=== PATIENT | female | born 1950 | race Caucasian/White ===

== ENCOUNTER 2017-09-14 15:12 | Observation (INO) | payer MEDICARE, BC ==
[2017-09-14] MEDS: CEFTRIAXONE 1 GM/50 ML (PMX) 50 ML IVPB (16:27)
[2017-09-14] MEDS: AZITHROMYCIN 250 MG TAB PO (16:27)
[2017-09-14] MEDS: SODIUM CHLORIDE 0.9% 1L BAG IV* (16:27)
[2017-09-14 16:42] LABS: ADD MAN DIFF? NO
[2017-09-14 16:45] LABS: BASOPHILS % 0.4 % (0.0-2.0); EOSINOPHILS # 0.1 10^3/ul (0.0-0.5); EOSINOPHILS % 0.8 % (0.0-7.0); HEMATOCRIT 39.2 % (37.0-47.0); HEMOGLOBIN 13.1 g/dl (12.0-16.0); LYMPHOCYTES # 1.4 10^3/ul (0.8-2.9); LYMPHOCYTES % 12.9 % (15.0-51.0); MEAN CORPUSCULAR HEMOGLOBIN 31.6 pg (29.0-33.0); MEAN CORPUSCULAR HGB CONC 33.4 g/dl (32.0-37.0); MEAN CORPUSCULAR VOLUME 94.7 fl (82.0-101.0); MEAN PLATELET VOLUME 9.7 fl (7.4-10.4); MONOCYTE # 0.9 10^3/ul (0.3-0.9); MONOCYTES % 8.3 % (0.0-11.0); NEUTROPHIL # 8.1 10^3/ul (1.6-7.5); NEUTROPHILS % 75.7 % (39.0-77.0); PLATELET COUNT 400 10^3/UL (140-415); RED BLOOD COUNT 4.14 10^6/ul (4.20-5.40); RED CELL DISTRIBUTION WIDTH 13.7 % (11.5-14.5)
[2017-09-14 16:45] LABS: WHITE BLOOD COUNT 10.6 10^3/ul (4.8-10.8)
[2017-09-14 17:06] LABS: LACTIC ACID 1.7 mmol/L (0.5-2.0)
[2017-09-14 17:07] LABS: ANION GAP 15 (8-16); BLOOD UREA NITROGEN 19 mg/dl (7-20); CARBON DIOXIDE 30 mmol/L (21-31); CHLORIDE 99 mmol/L (97-110); CREATININE 0.66 mg/dl (0.44-1.00); GLUCOSE 112 mg/dl (70-220); POTASSIUM 3.6 mmol/L (3.5-5.1); SODIUM 140 mmol/L (135-144)
[2017-09-14 17:49] LABS: CALCIUM 9.8 mg/dl (8.4-10.2)
[2017-09-14] MEDS: predniSONE 20 MG TAB PO (17:58)
[2017-09-14] MEDS: ALBUTEROL 0.083% (NEB) 2.5 MG/3 ML AMP NEB (18:16)
[2017-09-14] MEDS ORDERED: IBUPROFEN 800 MG TAB PO (18:30)
[2017-09-14] MEDS ORDERED: ONDANSETRON 4 MG TAB PO (18:30)
[2017-09-14] MEDS ORDERED: NACL 0.9% 3 ML SYG IV (18:30)
[2017-09-14] MEDS ORDERED: AZITHROMYCIN 500MG/NS (PMX) 250 ML IV (18:30)
[2017-09-14] MEDS ORDERED: MAGNESIUM HYDROXIDE 30ML CUP PO (18:30)
[2017-09-14] MEDS ORDERED: ALPRAZOLAM 0.25 MG TAB PO (18:30)
[2017-09-14] MEDS ORDERED: ACETAMINOPHEN 650 MG SUPP PR (18:30)
[2017-09-14 20:38] LABS: LACTIC ACID 1.6 mmol/L (0.5-2.0)
[2017-09-14] MEDS: CALCIUM/VITAMIN D (250/125) TAB PO (21:00)
[2017-09-14] MEDS: ALBUTEROL/IPRATROPIUM (NEB) 3 ML AMP NEB (21:02)
[2017-09-14] MEDS: ACETYLCYSTEINE 20% 4 ML VIAL NEB (21:02)
[2017-09-14] MEDS: FISH OIL 1,000 MG CAP PO (21:29)
[2017-09-14] MEDS: TIOTROPIUM 18 MCG CAPSULE INHA DEV INH (21:29)
[2017-09-14] MEDS: SALMETEROL/FLUTICASONE 250/50 INHA INH (21:29)
[2017-09-14] MEDS: FAMOTIDINE 20 MG TAB PO (21:30)
[2017-09-14] MEDS: ATORVASTATIN 10 MG TAB PO (21:30)
[2017-09-14] MEDS: MONTELUKAST 10 MG TAB PO (21:30)
[2017-09-14] MEDS: PRIMIDONE 250 MG TAB PO (21:30)
[2017-09-14] MEDS: HEPARIN 5,000 UNIT/0.5 ML VIAL SC (21:31)
[2017-09-14] MEDS: PREGABALIN 75 MG CAP PO (21:35)
[2017-09-14 23:11] LABS: LACTIC ACID 1.3 mmol/L (0.5-2.0)
[2017-09-14] MEDS: ZOLPIDEM 5 MG TAB PO (23:22)
[2017-09-14] MEDS: METHYLPREDNISOLONE 125 MG INJ IV (23:22)
[2017-09-14] MEDS: CARISOPRODOL 350 MG TAB PO (23:22)
[2017-09-15] MEDS: ALBUTEROL/IPRATROPIUM (NEB) 3 ML AMP NEB ×6 (01:00→21:00)
[2017-09-15] MEDS: ACETYLCYSTEINE 20% 4 ML VIAL NEB ×4 (01:02→21:33)
[2017-09-15 06:31] LABS: ADD MAN DIFF? NO
[2017-09-15 06:36] LABS: WHITE BLOOD COUNT 8.6 10^3/ul (4.8-10.8)
[2017-09-15 06:36] LABS: ABNORMAL IP MESSAGE 1; BASOPHILS % 0.3 % (0.0-2.0); HEMOGLOBIN 12.3 g/dl (12.0-16.0); LYMPHOCYTES # 1.3 10^3/ul (0.8-2.9); LYMPHOCYTES % 14.7 % (15.0-51.0); MEAN CORPUSCULAR HEMOGLOBIN 31.3 pg (29.0-33.0); MEAN CORPUSCULAR HGB CONC 33.2 g/dl (32.0-37.0); MEAN CORPUSCULAR VOLUME 94.1 fl (82.0-101.0); MEAN PLATELET VOLUME 9.7 fl (7.4-10.4); MONOCYTE # 0.3 10^3/ul (0.3-0.9); MONOCYTES % 3.1 % (0.0-11.0); NEUTROPHIL # 6.6 10^3/ul (1.6-7.5); NEUTROPHILS % 76.3 % (39.0-77.0); PLATELET COUNT 408 10^3/UL (140-415); RED BLOOD COUNT 3.93 10^6/ul (4.20-5.40); RED CELL DISTRIBUTION WIDTH 13.8 % (11.5-14.5)
[2017-09-15] MEDS: METHYLPREDNISOLONE 125 MG INJ IV ×4 (06:39→23:09)
[2017-09-15] MEDS: LEVOFLOXACIN 500 MG TAB PO (06:39)
[2017-09-15 06:47] LABS: POSITIVE DIFF @See below
[2017-09-15 07:25] LABS: ALANINE AMINOTRANSFERASE 28 IU/L (13-69); ALBUMIN 3.3 g/dl (3.3-4.9); ALBUMIN/GLOBULIN RATIO 0.89; ALKALINE PHOSPHATASE 78 IU/L (42-121); ANION GAP 13 (8-16); ASPARTATE AMINO TRANSFERASE 23 IU/L (15-46); BLOOD UREA NITROGEN 18 mg/dl (7-20); CARBON DIOXIDE 26 mmol/L (21-31); CHLORIDE 103 mmol/L (97-110); GLUCOSE 139 mg/dl (70-220); POTASSIUM 4.1 mmol/L (3.5-5.1); SODIUM 138 mmol/L (135-144)
[2017-09-15] MEDS: SALMETEROL/FLUTICASONE 250/50 INHA INH ×2 (08:52→21:17)
[2017-09-15] MEDS: PREGABALIN 75 MG CAP PO ×2 (08:52→21:17)
[2017-09-15] MEDS: CALCIUM/VITAMIN D (250/125) TAB PO ×2 (08:53→21:17)
[2017-09-15] MEDS: FISH OIL 1,000 MG CAP PO ×2 (08:53→21:17)
[2017-09-15] MEDS: MULTIVITAMINS THERAPEUTIC TAB PO (08:53)
[2017-09-15] MEDS: FAMOTIDINE 20 MG TAB PO ×2 (08:53→21:17)
[2017-09-15] MEDS: RALOXIFENE 60 MG TAB PO (08:53)
[2017-09-15] MEDS: HEPARIN 5,000 UNIT/0.5 ML VIAL SC ×2 (08:59→21:20)
[2017-09-15 09:12] LABS: BAND NEUTROPHILS #M 1.6 10^3/ul (0.0-0.6); BAND NEUTROPHILS % (M) 19 % (0-4); GIANT THROMBO% (M) 1 % (0-0); LYMPHOCYTES #M 1.1 10^3/ul (0.8-2.9); LYMPHOCYTES % (M) 13 % (15-51); MONOCYTE #M 0.1 10^3/ul (0.3-0.9); MONOCYTES % (M) 2 % (0-11); PLATELET ESTIMATE NORMAL; POIKILOCYTOSIS 2+ (0-0); POLYCHROMASIA 3+ (0-0); REACTIVE LYMPHOCYTES #M 0.1 10^3/ul (0.0-0.0); REACTIVE LYMPHOCYTES% (M) 2 % (0-0); SEG NEUT #M 5.6 10^3/ul (1.7-7.5); SEGMENTED NEUTROPHILS (M) % 63 % (39-77); SMUDGE%M 7 % (0-0)
[2017-09-15] MEDS: CARISOPRODOL 350 MG TAB PO (12:32)
[2017-09-15] MEDS: AZITHROMYCIN 500MG/NS (PMX) 250 ML IV (16:42)
[2017-09-15] MEDS: TIOTROPIUM 18 MCG CAPSULE INHA DEV INH (21:17)
[2017-09-15] MEDS: MONTELUKAST 10 MG TAB PO (21:17)
[2017-09-15] MEDS: ATORVASTATIN 10 MG TAB PO (21:18)
[2017-09-15] MEDS: PRIMIDONE 250 MG TAB PO (21:21)
[2017-09-15] MEDS: ZOLPIDEM 5 MG TAB PO (23:09)
[2017-09-16] MEDS: ALBUTEROL/IPRATROPIUM (NEB) 3 ML AMP NEB ×4 (00:37→11:49)
[2017-09-16] MEDS: ACETYLCYSTEINE 20% 4 ML VIAL NEB ×3 (02:00→11:50)
[2017-09-16] MEDS: LEVOFLOXACIN 500 MG TAB PO (06:41)
[2017-09-16] MEDS: METHYLPREDNISOLONE 125 MG INJ IV ×2 (06:44→12:00)
[2017-09-16] MEDS: HEPARIN 5,000 UNIT/0.5 ML VIAL SC (09:00)
[2017-09-16] MEDS: CALCIUM/VITAMIN D (250/125) TAB PO (09:55)
[2017-09-16] MEDS: PREGABALIN 75 MG CAP PO (09:59)
[2017-09-16] MEDS: RALOXIFENE 60 MG TAB PO (09:59)
[2017-09-16] MEDS: SALMETEROL/FLUTICASONE 250/50 INHA INH (09:59)
[2017-09-16] MEDS: FISH OIL 1,000 MG CAP PO (09:59)
[2017-09-16] MEDS: MULTIVITAMINS THERAPEUTIC TAB PO (09:59)
[2017-09-16] MEDS: FAMOTIDINE 20 MG TAB PO (09:59)
== END 2017-09-16 14:55 | disposition home or self-care (01) ==
LOC: E/R 15:12 → PP2 18:11
DX: J44.1 Chronic obstructive pulmonary disease with (acute) exacerbation (principal); J40 Bronchitis, not specified as acute or chronic; J96.20 Acute and chronic respiratory failure, unspecified whether with hypoxia or hypercapnia; Z99.81 Dependence on supplemental oxygen; Q85.01 Neurofibromatosis, type 1; E78.5 Hyperlipidemia, unspecified; M81.0 Age-related osteoporosis without current pathological fracture; M19.90 Unspecified osteoarthritis, unspecified site; G89.4 Chronic pain syndrome; F13.20 Sedative, hypnotic or anxiolytic dependence, uncomplicated
CPT/HCPCS: 36415; 71045; 80048; 80053; 83605; 85025; 87040; 87400; 94640; 94664; 96374; 99291-25; G0378